=== PATIENT | male | born 1985 | race Two or more races ===

== ENCOUNTER 2019-08-25 06:28 | Emergency (ER) | payer SELFPAY ==
[~2019-08-25] VITALS: Ht 177.8 cm; Wt 97.3 kg
[2019-08-25 06:36] VITALS: BP 146/93
== END 2019-08-25 07:21 | disposition left against medical advice (07) ==
LOC: EMS 06:29
DX: R42 Dizziness and giddiness (principal); Z53.21 Procedure and treatment not carried out due to patient leaving prior to being seen by health care provider